=== PATIENT | male | born 1945 | race Caucasian/White ===

== ENCOUNTER 2019-11-14 10:34 | Emergency (ER) | payer MEDICARE ==
[~2019-11-14] VITALS: Ht 177.8 cm; Wt 86.4 kg
[2019-11-14] MEDS ORDERED: LACT10SO62 PO (11:21)
[2019-11-14] MEDS ORDERED: ALBU8HFA IH (11:21)
[2019-11-14] MEDS ORDERED: FURO40I IV (11:21)
[2019-11-14] MEDS ORDERED: OMEP20 PO (11:21)
[2019-11-14] MEDS ORDERED: TEMA15CA PO (11:30)
[2019-11-14] MEDS ORDERED: RANI150T7 PO (11:30)
[2019-11-14] MEDS ORDERED: ADAL40KI SQ (11:30)
[2019-11-14] MEDS ORDERED: SERT50TA12 PO (11:30)
[2019-11-14] MEDS ORDERED: SPIR25 PO (11:30)
[2019-11-14 11:51] LABS: EOSINOPHILS % (AUTO) 2.4 % (1.0-6.0); HEMATOCRIT 22.5 % (41-53); HEMOGLOBIN 7.2 g/dL (13.5-17.5); LYMPHOCYTES % (AUTO) 18.8 % (22.0-44.0); MEAN CORPUSCULAR HEMOGLOBIN 24.2 pg (26.0-34.0); MEAN CORPUSCULAR HGB CONC 31.9 G/dL (31.0-37.0); MEAN CORPUSCULAR VOLUME 76 fL (80-100); MONOCYTES # (AUTO) 0.5 K/uL (0.1-1.0); MONOCYTES % (AUTO) 10.3 % (2.0-9.0); NEUTROPHILS # (AUTO) 3.5 K/uL (1.8-7.7); NEUTROPHILS % (AUTO) 67.5 % (40.0-70.0); PLATELET COUNT (AUTO) 253 K/uL (150-450); RED BLOOD CELL COUNT(AUTO) 2.97 MIL/uL (4.50-5.90); RED CELL DISTRIBUTION WIDTH 22.8 % (11.5-14.5)
[2019-11-14 11:56] LABS: ANION GAP 11 mmol/L (8-16); CALCIUM, TOTAL 8.7 mg/dL (8.8-10.5); CARBON DIOXIDE 23 mmol/L (22-29); CHLORIDE 105 mmol/L (98-107); CREATININE 0.82 mg/dL (0.60-1.30); GLUCOSE,RANDOM 119 mg/dL (70-110); POTASSIUM 3.6 mmol/L (3.5-5.1); SODIUM SERUM 139 mmol/L (136-145); UREA NITROGEN, BLOOD 16 mg/dL (7-18)
[2019-11-14 11:57] LABS: GLOMERULAR FILTR. RATE CALC > 60 mL/min (>60)
[2019-11-14 12:40] VITALS: BP 126/74
== END 2019-11-14 13:04 | disposition home or self-care (01) ==
LOC: EMS 10:35
DX: D64.9 Anemia, unspecified (principal); J44.9 Chronic obstructive pulmonary disease, unspecified; K74.60 Unspecified cirrhosis of liver; L40.9 Psoriasis, unspecified; F10.20 Alcohol dependence, uncomplicated; F32.9 Major depressive disorder, single episode, unspecified; F12.90 Cannabis use, unspecified, uncomplicated; Z79.899 Other long term (current) drug therapy; Z98.890 Other specified postprocedural states